=== PATIENT | female | born 1960 | race Caucasian/White ===

== ENCOUNTER 2016-10-28 06:36 | Day surgery (SDC) | payer BC ==
[~2016-10-28] VITALS: Ht 162.6 cm; Wt 85.0 kg
[2016-10-28] VITALS (10 sets, daily range): BP systolic 107–139; BP diastolic 59–86; PULSE 57–71; RESP 16–20; TEMP 97.8–97.9; O2SAT 95–98
[2016-10-28] MEDS ORDERED: BIOT50006 (07:03)
[2016-10-28] MEDS ORDERED: LISI10TA3 PO (07:03)
[2016-10-28] MEDS ORDERED: OMEP20TA PO (07:03)
[2016-10-28] MEDS ORDERED: FLUO20CA12 PO (07:03)
[2016-10-28] MEDS ORDERED: FEXO180T PO (07:03)
[2016-10-28] MEDS ORDERED: SODIUM CHLOR 0.9% 1000 ML INJ 1,000 ML IV SCH (07:15)
[2016-10-28] MEDS ORDERED: LIDOCAINE HCL 1% 20 ML VIAL ONE (07:57)
[2016-10-28] MEDS ORDERED: fentaNYL CITRATE 250 MCG/5 ML AMP ONE (08:26)
[2016-10-28] MEDS ORDERED: MIDAZOLAM HCL 2 MG/2 ML VIAL ONE (08:27)
--- NOTE | 2016-10-28 09:03 | PD.RAD ---
Post CT Procedure Prog Note Pre Procedure Diagnosis: (1) Liver enzyme elevation Post Procedure Diagnosis: (1) Liver enzyme elevation Procedure Date: Oct 28, 2016 Supervising Radiologist: Wan Colvin Anesthesia: Conscious Sedation Plan of Activity Patient to Unit: [facility] Patient Condition: Good Additional Comments: 2 x 18 guage cores of left lobe See PACS Report for procedural detail/treatment Wan Colvin MD Oct 28, 2016 09:03
[2016-10-28] MEDS ORDERED: HYDROmorphone HCL 2 MG TAB PO PRN (09:15)
--- NOTE | 2016-10-28 11:00 | RADRPT ---
EXAM DATE/TIME: 10/28/2016 08:40 [place] COMPARISON: No previous studies available for comparison. INDICATIONS : Elevated liver function. SEDATION TIME: 30 minutes BIOPSY SITE: Right MEDICATION(S): 1.) 2 mg midazolam (Versed) IV 2.) 125 mcg fentanyl (Sublimaze) IV DEVICE(S): 1.) 18 gauge BioPince needle MEDICAL HISTORY : Hypertension. SURGICAL HISTORY : None. ENCOUNTER: Initial ACUITY: 1 day PAIN SCORE: 0/10 LOCATION: Left lobe of the liver A total of two core specimen(s) were obtained and sent to the laboratory for pathologic evaluation. PROCEDURE: 1. CT guided liver biopsy. 2. Conscious sedation with continuous EKG and oximetry monitoring. 3. EKG and oximetry remained stable throughout the procedure. Prior to the procedure informed consent was obtained. Any appropriate prior imaging studies were rev iewed. Using automated exposure control and adjustment of the mA and/or kV according to patient size, radiat ion dose was kept as low as reasonably achievable to obtain optimal diagnostic quality images. DICOM format image data is available electronically for review and comparison. The site was prepped in a sterile fashion. Full sterile technique was used, including cap, mask, sarai rile gloves and gown and a large sterile sheet. Hand hygiene and 2% chlorhexidine and/or betadine/al cohol prep was utilized per protocol for cutaneous antisepsis. The skin and subcutaneous tissues wer e infiltrated with local anesthetic solution. With CT guidance the previously identified target was localized. Biopsy was performed using the presc ribed needle as above. Adequate hemostasis was obtained with compression at the puncture site. Follow-up CT scan reveals no hemorrhage. The patient tolerated the procedure well and there were no complications. The patient was returned to the Radiology Outpatient Unit in stable condition. CONCLUSION: Uncomplicated CT-guided biopsy of the left lobe of the liver. Wan Colvin MD on October 28, 2016 at 10:58 Board Certified Radiologist. This report was verified electronically.
[2016-10-28] MEDS ORDERED: GELATIN 12 MM/7 MM FOAM ONE (13:44)
== END 2016-10-28 13:15 | disposition home or self-care (01) ==
LOC: HRAD 06:36 → HRIP 06:42 → HRAD 13:15
DX: K75.81 Nonalcoholic steatohepatitis (NASH) (principal)
CPT/HCPCS: 47000; 77012; 88307; 88313; J2250; J3010